=== PATIENT | female | born 1940 | race Caucasian/White ===

== ENCOUNTER 2019-07-23 22:23 | Observation (INO) | payer OTHER ==
[2019-07-24] MEDS ORDERED: ACETAMINOPHEN 1000 MG/100 ML VIAL (NON FORMULARY) IVPB ONE (00:06)
[2019-07-24] MEDS ORDERED: METOCLOPRAMIDE HCL INJECTION 10 MG/2 ML VIAL IVPUSH ONE (00:06)
[2019-07-24] MEDS ORDERED: ASPIRIN 81 MG CHEWABLE TABLETS PO ONE (00:06)
--- NOTE | 2019-07-24 00:37 | PDOC ---
Documentation entered by Krystyna Pruitt SCRIBE, acting as scribe for Violetta Doyle DO. Violetta Doyle, DO: This documentation has been prepared by the Edmond arreola Xhesika, SCRIBE, under my direction and personally reviewed by me in its entirety. I confirm that the documentation accurately reflects all work, treatment, procedures, and medical decision making performed by me. History of Present Illness - General Chief Complaint: Blood Pressure Problem Stated Complaint: BLOOD PRESSURE PROBLEM Time Seen by Provider: 07/23/19 23:48 History Source: Patient Exam Limitations: No Limitations - History of Present Illness Initial Comments: 07/24/19 00:15 The patient is a 79 year old female with a significant PMH of HTN who presents to the emergency department for chest pain. The patient states she has been endorsing intermittent chest tightness associated with SOB, tingling sensation in b/l arms and lower extremity pain and swelling. Pt states she has been endorsing a frontal headache described as apins and needles sensation. Pt states she usually has low blood pressure, however today her BP was 160 systolic , which is unusual. Patient states she took advil at around 4pm, with mild relief of symptoms. The patient denies dizziness, fever, chills, cough, nausea, vomiting, diarrhea and constipation. Denies frequency, urgency and hematuria. Allergies: NKDA Past surgical history: , gallstones removal. PCP: Dr. Maria L Cueva Past History - Past Medical History Allergies/Adverse Reactions: Allergies Allergy/AdvReac Type Severity Reaction Status Date / Time No Known Allergies Allergy Verified 07/23/19 22:41 COPD: No - Surgical History Abdominal Surgery: Yes - Immunization History Immunization Up to Date: Yes - Psycho Social/Smoking Cessation Hx Smoking History: Never smoked Hx Alcohol Use: Yes Drug/Substance Use Hx: No Review of Systems - Review of Systems Able to Perform ROS?: Yes Comments:: 07/24/19 00:15 GENERAL/CONSTITUTIONAL: No fever or chills. No weakness. HEAD, EYES, EARS, NOSE AND THROAT: No change in vision. No ear pain or discharge. No sore throat. CARDIOVASCULAR:+ chest pain or shortness of breath. RESPIRATORY: No cough, wheezing, or hemoptysis. GASTROINTESTINAL: No nausea, vomiting, diarrhea or constipation. GENITOURINARY: No dysuria, frequency, or change in urination. MUSCULOSKELETAL: No joint or muscle swelling or pain. No neck or back pain. +b/ l arm tingling. +b/l leg pain, swelling and tingling sensation. SKIN: No rash NEUROLOGIC: No headache, vertigo, loss of consciousness, or change in strength/ sensation. ENDOCRINE: No increased thirst. No abnormal weight change. HEMATOLOGIC/LYMPHATIC: No anemia, easy bleeding, or history of blood clots. ALLERGIC/IMMUNOLOGIC: No hives or skin allergy. *Physical Exam - Vital Signs Last Vital Signs Temp Pulse Resp BP Pulse Ox 97.8 F 66 18 126/40 L 97 07/23/19 22:30 07/23/19 22:30 07/23/19 22:30 07/23/19 22:30 07/23/19 23:58 - Physical Exam 07/24/19 00:15 GENERAL: Awake, alert, and fully oriented, in no acute distress HEAD: No signs of trauma EYES: PERRLA, EOMI, sclera anicteric, conjunctiva clear ENT: Auricles normal inspection, hearing grossly normal, nares patent, oropharynx clear without exudates. Moist mucosa NECK: Normal ROM, supple, no lymphadenopathy, JVD, or masses LUNGS: Breath sounds equal, clear to auscultation bilaterally. No wheezes, and no crackles HEART: Regular rate and rhythm, normal S1 and S2, no murmurs, rubs or gallops ABDOMEN: Soft, nontender, normoactive bowel sounds. No guarding, no rebound. No masses EXTREMITIES: Normal range of motion, no edema. No clubbing or cyanosis. No cords, erythema, or tenderness. +1+ pitting edema to b/l lower extremities. NEUROLOGICAL: Cranial nerves II through XII grossly intact. SKIN: Warm, Dry, normal turgor, no rashes or lesions noted. Heart Score/ECG Review - ECG Intrepretation Comment:: 07/24/19 01:08 sinus at 60 w 1st degree av block, nl axis, nl interval, no acute st/t wave findings ED Treatment Course - LABORATORY CBC & Chemistry Diagram: 07/24/19 01:20 07/24/19 01:20 - RADIOLOGY Radiology Studies Ordered: Category Date Time Status CHEST X-RAY PORTABLE* [RAD] Stat Radiology 07/24/19 00:06 Ordered Medical Decision Making - Medical Decision Making 07/24/19 00:26 a/p: 79yo female with L sided cp assoc with sob and LE swelling that has been worsened for the last few days -today had elevated bp which made the cp worse -pt with less cp now -pt states bp was 165 systolic earlier when the pain was the worst -pmd not assoc with SJR. -takes asa and tylenol at home -will send labs, ekg, cxr -will monitor and reassess -pt will need obs vs admission for cp eval and LE swelling 07/24/19 02:19 cxr clear cbc reviewed and stable 07/24/19 02:22 pt signed out pending chem, trop, and obs/admission for further eval of L sided cp assoc with sob and edema Discharge - Discharge Information Problems reviewed: Yes Clinical Impression/Diagnosis: Chest pain, Edema Condition: Fair - Admission Yes - Follow up/Referral Referrals: ON STAFF,NOT [Primary Care Provider] - - Patient Discharge Instructions - Post Discharge Activity
[2019-07-24] MEDS ORDERED: ACETAMINOPHEN INJECTION 100 ML IVPB ONE (00:57)
[2019-07-24] MEDS ORDERED: ASPIRIN 81 MG CHEWABLE TABLETS ONE ×2 (00:57→12:02)
[2019-07-24] MEDS ORDERED: METOCLOPRAMIDE HCL INJECTION 10 MG/2 ML VIAL ONE (00:57)
[2019-07-24 01:41] LABS: BASO % 1.1 % (0-2.0); EOS % 5.4 % (0-4.5); HEMATOCRIT 38.7 % (32.4-45.2); HEMOGLOBIN 12.5 GM/dL (10.7-15.3); MCH 28.5 pg (25.7-33.7); MCHC 32.3 g/dl (32.0-36.0); MEAN CELL VOLUME 88.2 fl (80-96); MEAN PLT VOLUME 8.1 fl (7.5-11.1); MONO % 9.1 % (3.8-10.2); NEUT % 52.4 % (42.8-82.8); PLATELET COUNT 246 K/MM3 (134-434); RBC 4.38 M/mm3 (3.60-5.2); RDW 14.7 % (11.6-15.6)
[2019-07-24 01:54] LABS: INR 0.96 (0.83-1.09); PROTHROMBIN TIME (PATIENT) 11.3 SEC (9.7-13.0)
[2019-07-24 01:56] LABS: ACTIVATED PTT 32.3 SECONDS (25.2-36.5)
[2019-07-24 03:24] LABS: ALBUMIN 3.4 g/dl (3.4-5.0); ALK PHOS 95 U/L (45-117); ANION GAP 5 MMOL/L (8-16); BILIRUBIN,TOTAL 0.3 mg/dL (0.2-1); BLOOD UREA NITROGEN 20.6 mg/dL (7-18); CALCIUM 9.3 mg/dL (8.5-10.1); CHLORIDE 108 mmol/L (98-107); CO2 28 mmol/L (21-32); CREATININE 0.7 mg/dL (0.55-1.3); GLUCOSE,RANDOM 96 mg/dL (74-106); N-TERMINAL BNP 72.8 pg/ml (5-450); POTASSIUM 4.6 mmol/L (3.5-5.1); SGOT/AST 16 U/L (15-37); SGPT/ALT 18 U/L (13-61); SODIUM 141 mmol/L (136-145); TOT PROT 6.9 g/dl (6.4-8.2)
--- NOTE | 2019-07-24 04:32 | PN ---
Teaching Attending Note Name of Resident: Ernesto Marrufo ATTENDING PHYSICIAN STATEMENT I saw and evaluated the patient. I reviewed the resident's note and discussed the case with the resident. I agree with the resident's findings and plan as documented. SUBJECTIVE: 79-year-old woman presents complaining of chest pain left shoulder pain with movement. CP intermittent in nature, associated with some shortness of breath and tingling in her arms bilaterally. Also is complaining of some frontal headache. OBJECTIVE: Last Vital Signs Temp Pulse Resp BP Pulse Ox 97.8 F 66 18 126/40 L 97 07/23/19 22:30 07/23/19 22:30 07/23/19 22:30 07/23/19 22:30 07/23/19 23:58 GENERAL: Well developed, well nourished. Awake and alert. No acute distress. HEENT: Normocephalic, atraumatic. PERRLA, EOMI. No conjunctival pallor. Sclera are non- icteric. Moist mucous membranes. Oropharynx is clear. NECK: Supple. Full ROM. No JVD. Carotid pulses 2+ and symmetric, without bruits. No thyromegaly. No lymphadenopathy. CARDIOVASCULAR: Regular rate and rhythm. No murmurs, rubs, or gallops. Distal pulses are 2+ and symmetric. PULMONARY: No evidence of respiratory distress. Lungs clear to auscultation bilaterally. No wheezing, rales or rhonchi. ABDOMINAL: Soft. Non-tender. Non-distended. No rebound or guarding. No organomegaly. Normoactive bowel sounds. MUSCULOSKELETAL Normal range of motion at all joints. No bony deformities or tenderness. No CVA tenderness. EXTREMITIES: No cyanosis. No clubbing. No edema. No calf tenderness. SKIN: Warm and dry. Normal capillary refill. No rashes. No jaundice. PSYCHIATRIC: Cooperative. Good eye contact. Appropriate mood and affect. Abnormal Lab Results 07/24/19 07/24/19 01:20 01:20 Eosinophils % 5.4 H Chloride 108 H Anion Gap 5 L BUN 20.6 H TSH 7.76 H Chest x-ray was reviewed ASSESSMENT AND PLAN: 79-year-old woman with chest painshould rule out ACS. Left shoulder pain should evaluate for DJD. Telemetry Observation Trend troponins Outpatient cardiology stress test and transthoracic echo Left shoulder Heparin subcutaneously for DVT prophylaxis
--- NOTE | 2019-07-24 05:23 | HP ---
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 She presented to the ER with complaints of chest tightness today and SOB for the past 2 weeks which has progressively worsened. The chest tightness is substernal, started this morning, gradual in onset with no identifiable inciting events unrelated to exertion, positional changes, or respiration, moderate in intensity, sharp in quality and intermittent in nature , radiating to her left shoulder. She also complains of left shoulder pain which appears to be musculoskeletal in nature since it worsens on abduction, passive as well as active, but flexion and extension is not painful. She has tried Tylenol for her shoulder pain, which has helped. Her SOB has been worsening over the past 2 weeks associated with B/L edema, no orthopnea or PND. She is able to walk without significant SOB, but complains of pain and spasms in her right calf. She is also complaining of a headache in the occipital part of her head, not associated with visual changes or AMS. She reports checking her BP at home today, with systolic in 160s. She also endorses dysuria and increased urinary frequency, but no hematuria. ER course was notable for: (1) EKG: Bradycardia suggestive of AV block (2) Trop negative Recent Travel: denies PAST MEDICAL HISTORY: As listed in HPI PAST SURGICAL HISTORY: denies Social History: Smoking: denies Alcohol: denies Drugs: denies Allergies No Known Allergies Allergy (Verified 07/23/19 22:41) HOME MEDICATIONS: REVIEW OF SYSTEMS As listed in HPI PHYSICAL EXAMINATION Vital Signs - 24 hr 07/23/19 07/23/19 22:30 23:58 Temperature 97.8 F Pulse Rate 66 Respiratory 18 Rate Blood Pressure 126/40 L O2 Sat by Pulse 97 97 Oximetry (%) GENERAL: AOx3 HEAD: Normal with no signs of trauma. EYES: Pupils equal, round and reactive to light, extraocular movements intact, sclera anicteric, conjunctiva clear. No lid lag. EARS, NOSE, THROAT: Ears normal, nares patent, oropharynx clear without exudates. Moist mucous membranes. NECK: Normal range of motion, supple without lymphadenopathy, JVD, or masses. LUNGS: Breath sounds equal, clear to auscultation bilaterally. No wheezes, and no crackles. No accessory muscle use. HEART: Regular rate and rhythm, normal S1 and S2 without murmur, rub or gallop. ABDOMEN: Soft, suprapubic tenderness, right sided CVA tenderness MUSCULOSKELETAL: Passive abduction of rt shoulder elicits sharp pain UPPER EXTREMITIES: 2+ pulses, warm, well-perfused. No cyanosis. No clubbing. No peripheral edema. LOWER EXTREMITIES: Left calf pain, no erythema noted, both calves symmetrical NEUROLOGICAL: Cranial nerves II-XII intact. Normal speech. Normal gait. PSYCHIATRIC: Cooperative. Good eye contact. Appropriate mood and affect. SKIN: Warm, dry, normal turgor, no rashes or lesions noted, normal capillary refill. Laboratory Results - last 24 hr 07/24/19 07/24/19 07/24/19 01:20 01:20 01:20 WBC 7.0 RBC 4.38 Hgb 12.5 Hct 38.7 MCV 88.2 MCH 28.5 MCHC 32.3 RDW 14.7 Plt Count 246 MPV 8.1 Absolute Neuts (auto) 3.7 Neutrophils % 52.4 Lymphocytes % 32.0 Monocytes % 9.1 Eosinophils % 5.4 H Basophils % 1.1 Nucleated RBC % 0 PT with INR 11.30 INR 0.96 PTT (Actin FS) 32.3 Sodium 141 Potassium 4.6 Chloride 108 H Carbon Dioxide 28 Anion Gap 5 L BUN 20.6 H Creatinine 0.7 Est GFR (CKD-EPI)AfAm 96.86 Est GFR (CKD-EPI)NonAf 83.57 Random Glucose 96 Calcium 9.3 Total Bilirubin 0.3 AST 16 ALT 18 Alkaline Phosphatase 95 Creatine Kinase 49 Troponin I < 0.02 B-Natriuretic Peptide 72.8 Total Protein 6.9 Albumin 3.4 TSH 7.76 H ASSESSMENT/PLAN: This is a 79 year old female with PMH significant for HTN, DM, and hypothyroidism. She presented to the ER with complaints of chest tightness today and SOB for the past 2 weeks which has progressively worsened. Admitted for ACS r/o #Chest pain - EKG: Bradycardia suggestive of AV block - Trops negative, F/U cardiac profile ordered - Echo may be done outpatient #Headache - Currently asymptomatic, may administer Tylenol if it recurs #Shoulder pain - May be due to aqe related arthritis - Left shoulder X Ray ordered #Hx of DM - BGM and Novolog SS #Calf pain - Unilateral pain but B/L swelling, muscular calf spasms noted, DVT seems unlikely but will r/o - Rt LE doppler ordered #Dysuria - UA, Ucx ordered - Renal US ordered #FEN - DM diet #DVT - Heparin SQ #Dispo - Tele monitoring until ACS definitively r/o Visit type - Emergency Visit Emergency Visit: Yes ED Registration Date: 07/24/19 Care time: The patient presented to the Emergency Department on the above date and was hospitalized for further evaluation of their emergent condition. - New Patient This patient is new to me today: Yes Date on this admission: 07/24/19 - Critical Care Critical Care patient: No ATTENDING PHYSICIAN STATEMENT I saw and evaluated the patient. I reviewed the resident's note and discussed the case with the resident. I agree with the resident's findings and plan as documented. SUBJECTIVE: OBJECTIVE: ASSESSMENT AND PLAN:
--- NOTE | 2019-07-24 09:39 | EKG ---
Test Reason : Blood Pressure : / mmHG Vent. Rate : 060 BPM Atrial Rate : 060 BPM P-R Int : 210 ms QRS Dur : 092 ms QT Int : 444 ms P-R-T Axes : 058 008 059 degrees QTc Int : 444 ms SINUS RHYTHM WITH 1ST DEGREE A-V BLOCK LOW VOLTAGE QRS BORDERLINE ECG WHEN COMPARED WITH ECG OF 20-SEP-2016 11:34, NO SIGNIFICANT CHANGE WAS FOUND Confirmed by NISREEN MUELLER, MAURILIO ([id number]) on 07/24/2019 9:39:13 AM Referred By: Confirmed By:MAURILIO NIELSON MD
[2019-07-24] MEDS ORDERED: INSULIN SLIDING SCALE (NOVOLOG) 1 VIAL SQ SCH (11:00)
[2019-07-24 11:31] LABS: BASO % 1.2 % (0-2.0); EOS % 5.9 % (0-4.5); HEMATOCRIT 38.8 % (32.4-45.2); HEMOGLOBIN 12.9 GM/dL (10.7-15.3); LYMPH % 24.7 % (8-40); MCH 29.2 pg (25.7-33.7); MCHC 33.3 g/dl (32.0-36.0); MEAN CELL VOLUME 87.7 fl (80-96); MONO % 7.7 % (3.8-10.2); NEUT % 60.5 % (42.8-82.8); PLATELET COUNT 244 K/MM3 (134-434); RBC 4.42 M/mm3 (3.60-5.2); RDW 14.7 % (11.6-15.6); WHITE BLOOD COUNT 5.8 K/mm3 (4.0-10.0)
[2019-07-24] MEDS: ASPIRIN 81 MG CHEWABLE TABLETS PO SCH (11:45)
[2019-07-24 11:49] LABS: ALBUMIN 3.4 g/dl (3.4-5.0); ALK PHOS 95 U/L (45-117); ANION GAP 3 MMOL/L (8-16); BILIRUBIN,TOTAL 0.4 mg/dL (0.2-1); BLOOD UREA NITROGEN 18.4 mg/dL (7-18); CALCIUM 9.5 mg/dL (8.5-10.1); CHLORIDE 108 mmol/L (98-107); CHOLESTEROL 257 mg/dL (50-200); CO2 30 mmol/L (21-32); CREATININE 0.6 mg/dL (0.55-1.3); GLUCOSE,RANDOM 114 mg/dL (74-106); HDL CHOLESTEROL 59 mg/dL (40-60); LDL CHOLESTEROL (ONLY SJRH) 152 mg/dL (5-100); POTASSIUM 4.3 mmol/L (3.5-5.1); SGOT/AST 15 U/L (15-37); SGPT/ALT 19 U/L (13-61); SODIUM 141 mmol/L (136-145); TOT PROT 6.9 g/dl (6.4-8.2); TRIGLYCERIDES 95 mg/dL (0-150)
[2019-07-24] MEDS: AMOX TR/POT CLAV 875MG/125MG TABLETS (FP) PO SCH ×2 (12:13→21:55)
[2019-07-24] MEDS ORDERED: AZITHROMYCIN 250 MG TABLET ONE (13:12)
[2019-07-24] MEDS ORDERED: HEPARIN NA (PORCINE) 5,000 UNITS/ML 1ML VIAL ONE (13:13)
[2019-07-24] MEDS: HEPARIN NA (PORCINE) 5,000 UNITS/ML 1ML VIAL SQ SCH ×2 (13:21→21:55)
--- NOTE | 2019-07-24 13:22 | CON.CARD ---
Cardiology Consult (text) - Consultation Consultation Note: cc: htn, left shoulder pain hpi: 79 f hx htn, dm, hypothyroid, here with htn and left shoulder pain. Hx from pt and her son. Past few days at home bp has been labile at home. She also noticed pain left shoulder, worse with movement of arm. No cp. She has chronic mild reyes for many years, mostly when going up stairs, no recent changes in this symptom. pmh: per hpi psh: none social: no tob fam: no premature cad,scd ros: per hpi; all others nl meds: Home Medications Medication Instructions Recorded NK [No Known Home Medication] 07/24/19 Unobtainable 07/24/19 pe: Vital Signs Period Temp Pulse Resp BP Sys/Meadows Pulse Ox Last 24 Hr 97.8 F-98.6 F 66-74 18-18 126-130/40-49 97-98 nad no jvd rrr s1s2 no mrg cta bl nl eff aao3 no le e/c/c abd nt nd pos bs no jaundice diaphoresis pos dp pt no carotid bruits Laboratory Last Values WBC 5.8 K/mm3 (4.0-10.0) 07/24/19 11:13 RBC 4.42 M/mm3 (3.60-5.2) 07/24/19 11:13 Hgb 12.9 GM/dL (10.7-15.3) 07/24/19 11:13 Hct 38.8 % (32.4-45.2) 07/24/19 11:13 MCV 87.7 fl (80-96) 07/24/19 11:13 MCH 29.2 pg (25.7-33.7) 07/24/19 11:13 MCHC 33.3 g/dl (32.0-36.0) 07/24/19 11:13 RDW 14.7 % (11.6-15.6) 07/24/19 11:13 Plt Count 244 K/MM3 (134-434) 07/24/19 11:13 MPV 8.0 fl (7.5-11.1) 07/24/19 11:13 Absolute Neuts (auto) 3.5 K/mm3 (1.5-8.0) 07/24/19 11:13 Neutrophils % 60.5 % (42.8-82.8) 07/24/19 11:13 Lymphocytes % 24.7 % (8-40) D 07/24/19 11:13 Monocytes % 7.7 % (3.8-10.2) 07/24/19 11:13 Eosinophils % 5.9 % (0-4.5) H 07/24/19 11:13 Basophils % 1.2 % (0-2.0) 07/24/19 11:13 Nucleated RBC % 0 % (0-0) 07/24/19 11:13 PT with INR 11.30 SEC (9.7-13.0) 07/24/19 01:20 INR 0.96 (0.83-1.09) 07/24/19 01: PTT (Actin FS) 32.3 SECONDS (25.2-36.5) 07/24/19 01:20 Sodium 141 mmol/L (136-145) 07/24/19 11:13 Potassium 4.3 mmol/L (3.5-5.1) 07/24/19 11:13 Chloride 108 mmol/L (98-107) H 07/24/19 11:13 Carbon Dioxide 30 mmol/L (21-32) 07/24/19 11:13 Anion Gap 3 MMOL/L (8-16) L 07/24/19 11:13 BUN 18.4 mg/dL (7-18) H 07/24/19 11:13 Creatinine 0.6 mg/dL (0.55-1.3) 07/24/19 11:13 Est GFR (CKD-EPI)AfAm 101.90 07/24/19 11:13 Est GFR (CKD-EPI)NonAf 87.92 07/24/19 11:13 Random Glucose 114 mg/dL (74-106) H 07/24/19 11:13 Hemoglobin A1c % 5.5 % (4.2-6.3) 07/24/19 11:13 Calcium 9.5 mg/dL (8.5-10.1) 07/24/19 11:13 Total Bilirubin 0.4 mg/dL (0.2-1) 07/24/19 11:13 AST 15 U/L (15-37) 07/24/19 11:13 ALT 19 U/L (13-61) 07/24/19 11:13 Alkaline Phosphatase 95 U/L (45-117) 07/24/19 11:13 Creatine Kinase 51 U/L (26-192) 07/24/19 11:13 Troponin I < 0.02 ng/ml (0.00-0.05) 07/24/19 11:13 B-Natriuretic Peptide 72.8 pg/ml (5-450) 07/24/19 01:20 Total Protein 6.9 g/dl (6.4-8.2) 07/24/19 11:13 Albumin 3.4 g/dl (3.4-5.0) 07/24/19 11:13 Triglycerides 95 mg/dL (0-150) 07/24/19 11:13 Cholesterol 257 mg/dL (50-200) H 07/24/19 11:13 Total LDL Cholesterol 152 mg/dL (5-100) H 07/24/19 11:13 HDL Cholesterol 59 mg/dL (40-60) 07/24/19 11:13 TSH 7.76 uIU/ml (0.358-3.74) H 07/24/19 01:20 Thyroxine (T4) 9.7 ug/dl (4.5-13.9) 07/24/19 11:13 Resin T3 Uptake 28.6 % (30-39) L 07/24/19 11:13 Influenza A (Rapid) Negative (Negative) 07/24/19 12:16 Influenza B (Rapid) Negative (Negative) 07/24/19 12:16 ecg: sr nl qtc no ischemic changes cxr: no chf, ?pna a/p: 79 f hx htn, dm, hypothyroid, here with htn and left shoulder pain. htn: -bp ok here in ER -outpt monitoring shoulder pain: -seems msk, no signs acs pna: -abx per primary team sob: -pt with chronic reyes for years -no signs of chf or acs here -should f/u as outpt for cardiac testing. I spoke with son and he will make appt in our office.
[2019-07-24] MEDS ORDERED: AZITHROMYCIN 250 MG TABLET PO ONE (13:30)
--- NOTE | 2019-07-24 16:19 | ECHO ---
Name: BETH HUBBARD Exam:Adult Echocardiogram Study Date: 07/24/2019 02:00 PM Age: 79 yrs Height: 71 in Weight: 165 lb BSA: 1.9 m2 MMode/2D Measurements & Calculations IVSd: 1.3 cm Ao root diam: 3.1 cm LVIDd: 4.7 cm LA dimension: 4.3 cm LVIDs: 3.4 cm LVPWd: 1.2 cm LVPWs: 1.4 cm EDV(Teich): 102.0 ml ESV(Teich): 48.9 ml LVOT diam: 2.0 cm LVLd ap4: 8.3 cm EDV(MOD-sp4): 126.0 ml LVLs ap4: 6.8 cm ESV(MOD-sp4): 58.0 ml SV(MOD-sp4): 68.0 ml RV S Bebeto: 16.4 cm/sec Doppler Measurements & Calculations MV E max bebeto: 61.7 cm/sec Ao V2 max: 112.4 cm/sec MV A max bebeto: 109.6 cm/sec Ao max P.1 mmHg MV E/A: 0.56 Ao V2 mean: 77.2 cm/sec MV dec time: 0.31 sec Ao mean P.8 mmHg Ao V2 VTI: 24.7 cm ANDERS(I,D): 2.4 cm2 ANDERS(V,D): 2.3 cm2 LV V1 max P.6 mmHg MR max bebeto: 443.9 cm/sec LV V1 mean P.2 mmHg MR max P.8 mmHg LV V1 max: 80.5 cm/sec LV V1 mean: 51.1 cm/sec LV V1 VTI: 18.3 cm SV(LVOT): 60.1 ml TR max bebeto: 222.6 cm/sec TR max P.8 mmHg RVSP(TR): 22.8 mmHg PA V2 max: 103.2 cm/sec Med Peak E' Bebeto: 7.6 cm/sec PA max P.3 mmHg Med E/e': 8.1 Lat Peak E' Bebeto: 6.0 cm/sec Lat E/e': 10.2 RAP systole: 3.0 mmHg Pulm Sys Bebeto: 60.2 cm/sec Pulm [place] Bebeto: 31.1 cm/sec Pulm S/D: 1.9 Procedure A complete two-dimensional transthoracic echocardiogram was performed (2D, M-mode, Doppler and color flow Doppler). Left Ventricle The left ventricular size, thickness and function are normal. The left ventricular ejection fraction is normal. Ejection Fraction = 55-60%. The left ventricular wall motion is normal. Right Ventricle The right ventricle is normal in size and function. Atria Normal left and right atrial size and function. Chiari network (normal variant) is noted. Mitral Valve There is no mitral regurgitation noted. Tricuspid Valve There is trace tricuspid regurgitation. There was insufficient TR detected to calculate RV systolic p ressure. Aortic Valve The aortic valve is trileaflet. No hemodynamically significant valvular aortic stenosis. No aortic regurgitation is present. Pulmonic Valve There is no pulmonic valvular regurgitation. Great Vessels The aortic root is normal size. Pericardium/Pleura There is no pericardial effusion. Interpretation Summary The left ventricular size, thickness and function are normal The right ventricle is normal in size and function. There is trace tricuspid regurgitation. MD [place] 07/24/2019 04:18 PM
[2019-07-24 16:26] VITALS: BMI 28.5
--- NOTE | 2019-07-24 17:01 | PN ---
Physical Exam: SUBJECTIVE: Patient seen and examined. Pt c/o of diffuse body aches and pains. Non-reproducible Chest pain and shoulder pain. Afebrile. No overight events. Denies f/c/n/v/d/sob. OBJECTIVE: Vital Signs Period Temp Pulse Resp BP Sys/Meadows Pulse Ox Last 24 Hr 97.8 F-98.6 F 66-78 18-20 112-135/40-77 97-99 GENERAL: The patient is awake, alert, and fully oriented, in no acute distress. EYES: PERRL, extraocular movements intact, sclera anicteric, conjunctiva clear. No ptosis. NECK: Trachea midline, full range of motion, supple. LUNGS: Breath sounds equal, clear to auscultation bilaterally, no wheezes, no crackles. HEART: Regular rate and rhythm, S1, S2 without murmur, rub or gallop. ABDOMEN: Soft, nontender, nondistended, normoactive bowel sounds, no guarding EXTREMITIES: 2+ pulses, warm, well-perfused, b/l LE 3+ edema NEUROLOGICAL: Cranial nerves II through XII grossly intact. Normal speech, gait not observed. SKIN: Warm, dry, normal turgor, no rashes or lesions noted Laboratory Results - last 24 hr 07/24/19 07/24/19 07/24/19 11:13 11:13 11:13 WBC 5.8 RBC 4.42 Hgb 12.9 Hct 38.8 MCV 87.7 MCH 29.2 MCHC 33.3 RDW 14.7 Plt Count 244 MPV 8.0 Absolute Neuts (auto) 3.5 Neutrophils % 60.5 Lymphocytes % 24.7 D Monocytes % 7.7 Eosinophils % 5.9 H Basophils % 1.2 Nucleated RBC % 0 PT with INR INR PTT (Actin FS) Sodium 141 Potassium 4.3 Chloride 108 H Carbon Dioxide 30 Anion Gap 3 L BUN 18.4 H Creatinine 0.6 Est GFR (CKD-EPI)AfAm 101.90 Est GFR (CKD-EPI)NonAf 87.92 Random Glucose 114 H Hemoglobin A1c % 5.5 Calcium 9.5 Total Bilirubin 0.4 AST 15 ALT 19 Alkaline Phosphatase 95 Creatine Kinase 51 Troponin I < 0.02 B-Natriuretic Peptide Total Protein 6.9 Albumin 3.4 Triglycerides 95 Cholesterol 257 H Total LDL Cholesterol 152 H HDL Cholesterol 59 TSH Thyroxine (T4) 9.7 Resin T3 Uptake 28.6 L Influenza A (Rapid) Influenza B (Rapid) Active Medications Generic Name Dose Route Start Last Admin Trade Name Lora PRN Reason Stop Dose Admin Amoxicillin/Clavulanate Potassium 1 tab 07/24/19 12:00 07/24/19 12:13 Augmentin - 875mg Tablet PO 1 tab BID SUNNY Administration Aspirin 81 mg 07/24/19 11:30 07/24/19 11:45 Asa - PO 81 mg DAILY SUNNY Administration Azithromycin 250 mg 07/25/19 10:00 Zithromax - PO 07/28/19 10:00 DAILY SUNNY Heparin Sodium (Porcine) 5,000 unit 07/24/19 14:00 07/24/19 13:21 Heparin - SQ 5,000 unit TID SUNNY Administration ASSESSMENT/PLAN: 9 y/o F, pmh of HTN, DM, hypothyroidism, osteoarthritis, presented to the ED c/ o of left sided chest pain of squeezing sensation radiating to the left arm associated with sob, b/l leg pain and overall weakness is admitted for atypical chest pain, r/o acs #Atypical Chest pain likely 2/2 to arthritis vs CAP Pneumonia 2nd trop neg CXR- LLL infiltrates started on Azithromycin 500 and Augmentin [address] ordered Cardio consulted- Dr Rodrigez- nothing to do now, out pt cardiac test, family notified to f/u Right LE duplex neg ASA No need for statins, pts age >75 for ASCVD Lipids elevated Renal US neg Pt states she is not on any medications at home #Shoulder pain 2/2 to arthritis vs Degenerative changes Shoulder x rays taken- pending read IV tylenol if needed #Hx of DM ISS d/leola, will restart if gluc above 180 #Suprapubic pain UA + UCx sent #Hypothyroidism TSH elevated at 7.76 Will monitor DVTppx Hep sq FEN montior lytes monitor on tele PO diabetic diet Dispo: f/u cardio outpt, f/u CT chest, likely discharge in the am Visit type - Emergency Visit Emergency Visit: Yes ED Registration Date: 07/24/19 Care time: The patient presented to the Emergency Department on the above date and was hospitalized for further evaluation of their emergent condition. - New Patient This patient is new to me today: Yes Date on this admission: 07/25/19 - Critical Care Critical Care patient: No - Discharge Referral Referred to [facility] Med P.C.: No ATTENDING PHYSICIAN STATEMENT I saw and evaluated the patient. I reviewed the resident's note and discussed the case with the resident. I agree with the resident's findings and plan as documented. SUBJECTIVE: OBJECTIVE: ASSESSMENT AND PLAN:
[2019-07-24 21:51] LABS: EPI CELLS 4.7 /HPF (0-5/HPF); HYALINE CASTS 3 /lpf (0-8); URINE APPEARANCE CLEAR; URINE BACTERIA 2.1 /hpf (NEGATIVE); URINE BILIRUBIN NEGATIVE (NEGATIVE); URINE COLOR YELLOW; URINE GLUCOSE (UA) NEGATIVE (NEGATIVE); URINE KETONE NEGATIVE (NEGATIVE); URINE LEUK ESTERASE 2+ (NEGATIVE); URINE NITRITE NEGATIVE (NEGATIVE); URINE PROTEIN NEGATIVE (NEGATIVE); URINE RBC 2 /hpf (0-4); URINE UROBILINOGEN 0.2 mg/dL (0.2-1.0); URINE WBC 47 /hpf (0-5)
[2019-07-25] MEDS: HEPARIN NA (PORCINE) 5,000 UNITS/ML 1ML VIAL SQ SCH (06:06)
[2019-07-25 07:15] LABS: HEMATOCRIT 37.9 % (32.4-45.2); HEMOGLOBIN 12.4 GM/dL (10.7-15.3); MCH 28.7 pg (25.7-33.7); MCHC 32.8 g/dl (32.0-36.0); MEAN CELL VOLUME 87.6 fl (80-96); MEAN PLT VOLUME 8.3 fl (7.5-11.1); PLATELET COUNT 239 K/MM3 (134-434); RBC 4.33 M/mm3 (3.60-5.2); RDW 14.8 % (11.6-15.6); WHITE BLOOD COUNT 6.9 K/mm3 (4.0-10.0)
[2019-07-25 07:40] LABS: ALBUMIN 3.2 g/dl (3.4-5.0); BILIRUBIN,TOTAL 0.4 mg/dL (0.2-1); BLOOD UREA NITROGEN 25.5 mg/dL (7-18); CALCIUM 9.3 mg/dL (8.5-10.1); CREATININE 0.6 mg/dL (0.55-1.3); MAGNESIUM 2.4 mg/dL (1.8-2.4); PHOSPHOROUS 3.5 mg/dL (2.5-4.9); POTASSIUM 4.1 mmol/L (3.5-5.1); TOT PROT 6.6 g/dl (6.4-8.2)
--- NOTE | 2019-07-25 09:53 | PN ---
Progress Note, Physician Chief Complaint: Comfortable TELE: Sinus, episodes sinus tach History of Present Illness: 79 f hx htn, dm, hypothyroid, here with htn and left shoulder pain. Hx from pt and her son. Past few days at home bp has been labile at home. She also noticed pain left shoulder, worse with movement of arm. No cp. She has chronic mild reyes for many years, mostly when going up stairs, no recent changes in this symptom. - Current Medication List Current Medications: Active Medications Amoxicillin/Clavulanate Potassium (Augmentin - 875mg Tablet) 1 tab PO BID [facility] Last Admin: 07/24/19 21:55 Dose: 1 tab Aspirin (Asa -) 81 mg PO DAILY [facility] Last Admin: 07/24/19 11:45 Dose: 81 mg Azithromycin (Zithromax -) 250 mg PO DAILY [facility] Stop: 07/28/19 10:00 Heparin Sodium (Porcine) (Heparin -) 5,000 unit SQ TID [facility] Last Admin: 07/25/19 06:06 Dose: 5,000 unit - Objective Vital Signs: Vital Signs Temperature 97.5 F L 07/25/19 05:15 Pulse Rate 79 07/25/19 05:15 Respiratory Rate 18 07/25/19 05:15 Blood Pressure 124/69 07/25/19 05:15 O2 Sat by Pulse Oximetry (%) 95 07/24/19 21:00 Constitutional: Yes: No Distress Eyes: Yes: Conjunctiva Clear Cardiovascular: Yes: Regular Rate and Rhythm Respiratory: Yes: CTA Bilaterally Gastrointestinal: Yes: Soft Edema: No ...Motor Strength: WNL Labs: CBC, BMP 07/25/19 05:33 07/25/19 05:33 INR, PTT INR 0.96 (0.83-1.09) 07/24/19 01:20 - ....Imaging Chest X-ray: Report Reviewed Cat Scan: Report Reviewed EKG: Image Reviewed Assessment/Plan a/p: 79 f hx htn, dm, hypothyroid, here with htn and left shoulder pain. htn: -bp controlled. -outpt monitoring -Echo wnl shoulder pain: -seems msk, no signs acs; X ray w/ OA changes. pna/pneumonitis: -abx per primary team -F/u imaging as per primary team -Consider Pulm Consult. sob: -pt with chronic reyes for years -no signs of chf or acs here -should f/u as outpt for cardiac testing. Dr. Hill spoke with son and he will make appt in our office. Can D/C Tele
[2019-07-25] MEDS ORDERED: AZITHROMYCIN 250 MG TABLET PO SCH (10:00)
[2019-07-25] MEDS: AMOX TR/POT CLAV 875MG/125MG TABLETS (FP) PO SCH (10:11)
[2019-07-25] MEDS: ASPIRIN 81 MG CHEWABLE TABLETS PO SCH (10:11)
--- NOTE | 2019-07-25 11:30 | PN ---
Teaching Attending Note Name of Resident: Bryan Lord ATTENDING PHYSICIAN STATEMENT I saw and evaluated the patient. I reviewed the resident's note and discussed the case with the resident. I agree with the resident's findings and plan as documented. Discharged; followup with pulm No further synmptoms Cleared by CV HR wnl, S1/2+ Lungs clear, w/ sym exp NT ND +BS CN2-12 wnl, no fnd Normal mood, appropriate behavior Agree with hospital course and followups per resident DCS
[2019-07-25 14:00] VITALS: BP 118/67; PULSE 76; TEMP 98.4
--- NOTE | 2019-07-25 14:19 | DS ---
Physical Exam: SUBJECTIVE: Patient seen and examined. Pt c/o of diffuse body aches and pains but has improved significantly. Non-reproducible Chest pain and shoulder pain. Afebrile. No overnight events. Denies f/c/n/v/d/sob. OBJECTIVE: Vital Signs Period Temp Pulse Resp BP Sys/[place] Pulse Ox Last 24 Hr 97.5 F-99 F 65-82 18-20 106-135/46-77 95-99 PHYSICAL EXAM GENERAL: The patient is awake, alert, and fully oriented, in no acute distress. EYES: PERRL, extraocular movements intact, sclera anicteric, conjunctiva clear. No ptosis. NECK: Trachea midline, full range of motion, supple. LUNGS: Breath sounds equal, clear to auscultation bilaterally, no wheezes, no crackles. HEART: Regular rate and rhythm, S1, S2 without murmur, rub or gallop. ABDOMEN: Soft, nontender, nondistended, normoactive bowel sounds, no guarding EXTREMITIES: 2+ pulses, warm, well-perfused, b/l LE 3+ edema NEUROLOGICAL: Cranial nerves II through XII grossly intact. SKIN: Warm, dry, normal turgor, no rashes or lesions noted Laboratory Results - last 24 hr CBC,CMP WBC 6.9 K/mm3 (4.0-10.0) 07/25/19 05:33 RBC 4.33 M/mm3 (3.60-5.2) 07/25/19 05:33 Hgb 12.4 GM/dL (10.7-15.3) 07/25/19 05:33 Hct 37.9 % (32.4-45.2) 07/25/19 05:33 MCV 87.6 fl (80-96) 07/25/19 05:33 MCH 28.7 pg (25.7-33.7) 07/25/19 05:33 MCHC 32.8 g/dl (32.0-36.0) 07/25/19 05:33 RDW 14.8 % (11.6-15.6) 07/25/19 05:33 Plt Count 239 K/MM3 (134-434) 07/25/19 05:33 MPV 8.3 fl (7.5-11.1) 07/25/19 05:33 Absolute Neuts (auto) 3.5 K/mm3 (1.5-8.0) 07/24/19 11:13 Neutrophils % 60.5 % (42.8-82.8) 07/24/19 11:13 Lymphocytes % 24.7 % (8-40) D 07/24/19 11:13 Monocytes % 7.7 % (3.8-10.2) 07/24/19 11:13 Eosinophils % 5.9 % (0-4.5) H 07/24/19 11:13 Basophils % 1.2 % (0-2.0) 07/24/19 11:13 Nucleated RBC % 0 % (0-0) 07/24/19 11:13 ESR 29 mm/hr (0-30) 07/24/19 17:15 Sodium 140 mmol/L (136-145) 07/25/19 05:33 Potassium 4.1 mmol/L (3.5-5.1) 07/25/19 05:33 Chloride 107 mmol/L (98-107) 07/25/19 05:33 Carbon Dioxide 27 mmol/L (21-32) 07/25/19 05:33 Anion Gap 6 MMOL/L (8-16) L 07/25/19 05:33 BUN 25.5 mg/dL (7-18) H 07/25/19 05:33 Creatinine 0.6 mg/dL (0.55-1.3) 07/25/19 05:33 Est GFR (CKD-EPI)AfAm 101.90 07/25/19 05:33 Est GFR (CKD-EPI)NonAf 87.92 07/25/19 05:33 POC Glucometer 138 UNITS (80-120) 07/24/19 22:22 Random Glucose 94 mg/dL (74-106) 07/25/19 05:33 Hemoglobin A1c % 5.5 % (4.2-6.3) 07/24/19 11:13 Calcium 9.3 mg/dL (8.5-10.1) 07/25/19 05:33 Phosphorus 3.5 mg/dL (2.5-4.9) 07/25/19 05:33 Magnesium 2.4 mg/dL (1.8-2.4) 07/25/19 05:33 Total Bilirubin 0.4 mg/dL (0.2-1) 07/25/19 05:33 AST 12 U/L (15-37) L 07/25/19 05:33 ALT 18 U/L (13-61) 07/25/19 05:33 Alkaline Phosphatase 92 U/L (45-117) 07/25/19 05:33 Creatine Kinase 51 U/L (26-192) 07/24/19 11:13 Troponin I < 0.02 ng/ml (0.00-0.05) 07/24/19 11:13 C-Reactive Protein 0.5 MG/DL (0.00-0.3) H 07/24/19 17:15 B-Natriuretic Peptide 72.8 pg/ml (5-450) 07/24/19 01:20 Total Protein 6.6 g/dl (6.4-8.2) 07/25/19 05:33 Albumin 3.2 g/dl (3.4-5.0) L 07/25/19 05:33 Triglycerides 95 mg/dL (0-150) 07/24/19 11:13 Cholesterol 257 mg/dL (50-200) H 07/24/19 11:13 Total LDL Cholesterol 152 mg/dL (5-100) H 07/24/19 11:13 HDL Cholesterol 59 mg/dL (40-60) 07/24/19 11:13 TSH 7.76 uIU/ml (0.358-3.74) H 07/24/19 01:20 Thyroxine (T4) 9.7 ug/dl (4.5-13.9) 07/24/19 11:13 Resin T3 Uptake 28.6 % (30-39) L 07/24/19 11:13 Home Medications Medication Instructions Recorded Amox-Tr/K Cl [Augmentin 875-125mg 1 tab PO BID #6 tablet 07/25/19 Tablet -] Aspirin [ASA -] 81 mg PO DAILY #30 tab.chew 07/25/19 Azithromycin 250 mg PO BID 3 Days #6 tablet 07/25/19 Miscellaneous Medical Supply 1 each ASDIR #1 misc 07/25/19 [Outpatient Order] Microbiology 07/24/19 20:50 Urine For Antigen Detection Legionella Antigen - Final 07/24/19 20:50 Urine For Antigen Detection Streptococcus pneumoniae Antigen (M - Final HOSPITAL COURSE: Date of Admission:07/25/19 9 y/o F, pmh of HTN, DM, hypothyroidism, osteoarthritis, presented to the ED c/ o of left sided chest pain of squeezing sensation radiating to the left arm associated with sob, b/l leg pain and overall weakness is admitted for atypical chest pain. ACS was r/o, trops neg and EKG was normal. Pt was treated with pain medications started on Azithromycin 500 and Augmentin 875 due to a LLL infiltrate seen on CXR. CT of the Chest was taken and showed minimal to mild b/ l LL + RML ground glass attentuation likely small airway disease vs subtle acute pneumonitis. Mild lingular wedge shaped atelectasis. Lt kidey 1.7cm in the upper pole intracortical attentuation focus was seen. Pt's symptoms improved significantly and was discharged home on abx azithro and augmentin to complete the doses started. Pt was also given referrals to Pulmonology and Nephro for the findings seen on CAT scan. Pt's pcp Dr. Archana Cueva ([phone]) was contacted and informed about the findings on CAT scan. Pt's family was informed and all questions were answered before pt was discharged home. EKG: sinus at 60 w 1st degree av block, nl axis, nl interval, no acute st/t wave findings CXR- LLL infiltrates Right LE duplex neg Shoulder x rays: CT of the Chest was taken and showed minimal to mild b/l LL + RML ground glass attentuation likely small airway disease vs subtle acute pneumonitis. Mild lingular wedge shaped atelectasis. Lt kidney 1.7cm in the upper pole intracortical attenuation focus- CT contrast or MRI is recommended. Date of Discharge: 07/25/19 Minutes to complete discharge: 40 Discharge Summary Problems reviewed: Yes Reason For Visit: [email or web address].CHEST PAIN Condition: Stable - Instructions Diet, Activity, Other Instructions: You were admitted to the hospital for chest pain. While you were here we monitored your heart and found it to be functioning normally. To continue to monitor the function of your heart please follow up with the [employer] in one week. While you were here we did imaging of your chest and abdomen. It found that you have some abnormalities in your lungs. This needs to be followed by a lung doctor and needs more imaging. You were also found to have a mass on your kidney. For this you will need further imaging and to follow with the kidney doctor. You will now take Aspirin 81 mg by mouth daily. You were found to have a slight infection in your lungs and urine. To complete treatment of this please take: Azithromycin 250 mg by mouth for three days Augmentin 875 mg twice a day by mouth for three days Please also follow up with your primary care physician within one week, if you do not have one we will provide you with information. Return to the the Emergency Department if you have any nausea, vomiting, headache, chest pressure, or shortness of breath. Referrals: [facility] [Provider Group] Yohan Carrillo MD [Staff Physician] - King Hill MD [Staff Physician] - Russ Berry MD [Staff Physician] - Disposition: HOME - Home Medications Comprehensive Discharge Medication List: Ambulatory Orders Amox-Tr/K Cl [Augmentin 875-125mg Tablet -] 1 tab PO BID #6 tablet 07/25/19 Aspirin [ASA -] 81 mg PO DAILY #30 tab.chew 07/25/19 Azithromycin [Zithromax 250mg Tablets -] 250 mg PO DAILY #3 tablet 07/25/19 Miscellaneous Medical Supply [Outpatient Order] 1 each ASDIR #1 misc This patient is new to me today: Yes Date on this admission: 07/25/19 Emergency Visit: Yes ED Registration Date: 07/25/19 Care time: The patient presented to the Emergency Department on the above date and was hospitalized for further evaluation of their emergent condition. Critical Care patient: No - Discharge Referral Referred to [facility] No ATTENDING PHYSICIAN STATEMENT I saw and evaluated the patient. I reviewed the resident's note and discussed the case with the resident. I agree with the resident's findings and plan as documented. SUBJECTIVE: OBJECTIVE: ASSESSMENT AND PLAN:
== END 2019-07-25 14:40 | disposition home or self-care (01) ==
LOC: SUPCPDRO 22:23 → JER 22:23 → UNDOADMOB 07-24 00:37 → JERBED 07-24 00:37 → OBSVTOIN 07-24 05:03 → INTOOBSV 07-24 05:03 → J4W 07-24 15:14 → JERBED 07-24 15:14 → J4W 07-25 10:08
PROVIDERS: ADMIT Internal Medicine; ATTEND Internal Medicine
PROC: 3E033NZ Introduction of Analgesics, Hypnotics, Sedatives into Peripheral Vein, Percutaneous Approach (ICD-10-PCS; principal; 2019-07-25)
PROC: 3E033GC Introduction of Other Therapeutic Substance into Peripheral Vein, Percutaneous Approach (ICD-10-PCS; 2019-07-25)
PROC: 3E013GC Introduction of Other Therapeutic Substance into Subcutaneous Tissue, Percutaneous Approach (ICD-10-PCS; 2019-07-25)
DX: R07.89 Other chest pain (principal); R60.0 Localized edema; I10 Essential (primary) hypertension; E11.9 Type 2 diabetes mellitus without complications; E03.9 Hypothyroidism, unspecified; R30.0 Dysuria; M79.662 Pain in left lower leg; R10.30 Lower abdominal pain, unspecified; M19.90 Unspecified osteoarthritis, unspecified site; J18.9 Pneumonia, unspecified organism; N28.9 Disorder of kidney and ureter, unspecified; Z79.82 Long term (current) use of aspirin
CPT/HCPCS: 36415; 71045-TC-FY; 71250-TC; 73030-TC-LT-FY; 76775-TC; 80053; 80061; 81003; 82550; 82962; 83036; 83721; 83735; 83880; 84100; 84436; 84443; 84479; 84484; 85025; 85027; 85610; 85651; 85730; 86140; 87086; 87804; 87899; 93005; 93010; 93306-TC; 93971-TC; 94010; 96372; 96374; 96375; 97116-GP; 97161-GP; 99285-25; G0378; J0131; J1644